=== PATIENT | male | born 1985 | race Caucasian/White ===

== ENCOUNTER 2024-06-02 09:42 | Day surgery (SDC) | payer BC, SELFPAY ==
[2024-06-02 10:06] VITALS: BMI 29.0
[2024-06-02 10:15] VITALS: BP 112/73; PULSE 83; RESP 16; TEMP 37.2; O2SAT 99
[2024-06-02] MEDS: SODIUM CHLORIDE 0.9 % (FLUSH) 10 ML SYRINGE IVF (10:18)
[2024-06-02] MEDS: 0.9 % SODIUM CHLORIDE 500 ML 500 ML 100 ML IV (10:18)
--- NOTE | 2024-06-02 10:18 | W.PM.H&PU ---
History & Physical Update History & Physical Update H&P Reviewed and patient assessed: No changes noted
--- NOTE | 2024-06-02 10:18 | PM.GSPRC ---
Operative Note Date of procedure: 06/02/24 Pre-op diagnosis: 1. Left posterior neck mass 2. Desire for permanent sterilization Post-op diagnosis: 1. Intramuscular left posterior neck mass 2. Desire for permanent sterilization Type of Procedure: 1. Excision 4 cm left neck mass 2. Vasectomy Indications: The patient is a 39-year-old male with a left neck mass. This has been present for several years but it is intermittently uncomfortable for him. He had an ultrasound showing a 3.5 cm subcutaneous lipoma. He would like it removed. He also desires permanent sterilization and after discussion of risks and options to do procedures together in clinic versus in the OR with some sedation or separately in clinic, he elected to proceed with vasectomy to be done at the same time under sedation in the OR. Procedure Description: After discussing the risks and benefits of the procedure, the patient signed informed consent.? The operative site was marked and the patient was brought to the operating room and placed on the operating table first in right lateral decubitus position. A blanton bag was used to position the patient and care was taken to pad the patient's pressure points.?? The patient was then given sedation by anesthesia.?? The patient's neck was then prepped and draped in the usual sterile fashion.? A time-out was then performed. After injecting local anesthetic into the skin and subcutaneous tissue overlying the mass, a skin incision was made. Dissection was taken down through subcutaneous fat using cautery. A fibrous capsule was encountered overlying the palpable mass and this was incised with cautery. A fatty mass was then encountered. This was carefully dissected from the surrounding tissue with a combination of blunt dissection and cautery to release small fibers that were tethering the mass, with care to stay on the fatty mass itself. The mass appeared to be within the fibers of the trapezius muscle. The fatty mass was excised completely. The wound was examined and hemostasis appeared excellent. The fascial layer was reapproximated with 3-0 Vicryl suture. The skin was then closed with 3-0 Vicryl dermal and 4-0 Monocryl subcuticular suture. Sterile dressings were then applied. The patient was then repositioned supine again with care to pad pressure points. Attention was then turned to the vasectomy. The scrotum and penis were prepped with copious Betadine and draped. I began on the right side. The spermatic cord was grasped and the vas deferens isolated. 1% lidocaine was injected into the scrotal skin and around the vas deferens. Once the skin was anesthetized, a stab incision was made overlying the vas. Blunt dissection was taken down to the vas. The vas deferens was then grasped and pulled out the incision. Careful dissection was then done to isolate a 3 cm segment of vas deferens from the surrounding blood vessels and tissue. Once this was done the vas was clipped proximally and distally and sharply transected with scissors. The ends of the vas deferens were cauterized. The specimen was passed off for pathology. The wound was examined for hemostasis which was adequate. The same procedure was then performed on the left, again isolating a 3 cm segment of vas deferens and sending for pathology. Gauze dressings were then applied. ? The patient was then woken and transported to the recovery area in stable condition. ? The patient tolerated the procedure well. Findings: 4 cm intramuscular left neck mass Anesthesia: MAC Surgeon: Khushbu Penn MD Additional Specimen Information: 1. Left neck lipoma 2. Right vas deferens 3. Left vas deferens Condition: stable Disposition: same day
[2024-06-02] MEDS: LIDOCAINE 1% MDV 20 ML INJECTION (10:35)
[2024-06-02] MEDS: BUPIVACAINE 0.5% 30 ML INJECTION (10:35)
[2024-06-02 11:15] VITALS: BP 112/77; PULSE 87; RESP 12; TEMP 36.4; O2SAT 96
--- NOTE | 2024-06-02 11:19 | W.ANESCHARGE ---
Anesthesia Charges Start Date/Time Anesthesia Start Date: 06/02/24 Anesthesia Start Time: 10:16 Stop Date/Time Anesthesia Stop Date: 06/02/24 Anesthesia Stop Time: 11:20
--- NOTE | 2024-06-02 11:29 | W.ANESCHARGE ---
Anesthesia Charges Start Date/Time Anesthesia Start Date: 06/02/24 Anesthesia Start Time: 10:16 Stop Date/Time Anesthesia Stop Date: 06/02/24 Anesthesia Stop Time: 11:20
[2024-06-02 11:30] VITALS: BP 140/74; PULSE 77; RESP 12; O2SAT 96
[2024-06-02 11:45] VITALS: BP 150/77; PULSE 70; RESP 14; O2SAT 96
[2024-06-02 12:00] VITALS: BP 131/92; PULSE 67; RESP 14; O2SAT 97
[2024-06-02] MEDS: IBUPROFEN 400 MG TABLET 800 MG PO (12:15)
== END 2024-06-02 12:32 | disposition home or self-care (01) ==
PROVIDERS: PCP Family Medicine; Visit Provider Surgery
PROC: (CPT 55250; principal; 2024-06-02 10:00)
PROC: (CPT 55250; 2024-06-02 10:00)
DX: D17.0 Benign lipomatous neoplasm of skin and subcutaneous tissue of head, face and neck (principal); Z30.2 Encounter for sterilization
CPT/HCPCS: 55250; 21556; 00300; 88302; 88304; 88377; J2003; A9270; J0665; J1100; J2250; J2405; J2704; J3010; J3490; J7030